=== PATIENT | female | born 2005 | race Caucasian/White ===

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

== ENCOUNTER 2024-10-28 17:43 | Emergency (ER) | payer BC, SELFPAY ==
--- OUTSIDE RECORDS SUMMARY | 2024-10-28 17:54 | XMS_ITS | Patient Health Summary ---
Author Organization [facility] Address [address] [place] [address] Care Team Providers Care Sas Statistical Programmer Name Role Phone Unavailable Primary Care Provider Unavailabl e Note from [facility],non-owned Affiliates and Associated Physician Practices is amultiple site organization consisting of ambulatory clinics and hospital sitesin [place], [place], [place] and [place]. This disclosure is being madepursuant to the Care Everywhere program and may not contain all information available regarding this patient. Last updated 18.[facility] Social History Tobacco Use Types Packs/Day Years Used Date Smoking Tobacco: Never Assessed Sex and Gender Information Value Date Recorded Sex Assigned at Not on file Gender Identity Not on file Sexual Orientation Not on file Procedures * CULTURE URINE(Performed 04/27/2014) Results * (ABNORMAL) CULTURE URINE (04/27/2014 11:00 AM CDT) Culture Urine ESCHERICHIA COLI(A) [facility] Comment:1,000,000 CFU/ML Esc herichia Coli Urine specimen (specimen) URINE / Unknown 04/27/2014 11:00 AM CDT 04/29/2014 3:46 PM CDT Narrative [facility] - 04/30/2014 1:07 PM CDT Specimen Type->Urine Organism Antibiotic Method Susceptibility Escherichia coli Amikacin SUSCEPTIBILITY <=2 mcg/ml: Sensitive Escherichia coli Ampicillin SUSCEPTIBILITY 4 mcg/ml: Sensitive Escherichia coli Ampicillin-sulbactam SUSCEPTIBILITY <=2 mcg/ml: Sensitive Escherichia coli Cefazolin SUSCEPTIBILITY <=4 mcg/ml: Sensitive Escherichia coli Cefepime SUSCEPTIBILITY <=1 mcg/ml: Sensitive Escherichia coli Ceftazidime SUSCEPTIBILITY <=1 mcg/ml: Sensitive Escherichia coli Ceftriaxone SUSCEPTIBILITY <=1 mcg/ml: Sensitive Escherichia coli Gentamicin SUSCEPTIBILITY <=1 mcg/ml: Sensitive Escherichia coli Imipenem SUSCEPTIBILITY <=0.25 mcg/ml: Sensitive Escherichia coli Levofloxacin SUSCEPTIBILITY <=0.12 mcg/ml: Sensitive Escherichia coli Nitrofurantoin SUSCEPTIBILITY 32 mcg/ml: Sensitive Escherichia coli Piperacillin-tazobactam SUSCEPTIBILIT Y <=4 mcg/ml: Sensitive Escherichia coli Tobramycin SUSCEPTIBILITY <=1 mcg/ml: Sensitive Escherichia coli Trimethoprim-sulfame thoxazo le SUSCEPTIBILITY <=20 mcg/ml: Sensitive Escherichia coli Extended-Spectrum Beta-Lactamase SUSCEPTIBILITY NEGATIVE: - Rajat Khan MD LAB - MICROBIOLOGY [facility] [place] [id number] [address] [phone]
--- OUTSIDE RECORDS SUMMARY | 2024-10-28 17:54 | XMS_ITS | Referral Summary ---
Author Organization [facility] Address [facility] [place] [address] Care Team Providers Care Proposition Player Name Role Phone Unavailable Primary Care Provider Unavailabl e Source Comments [facility],non-owned Affiliates and Associated Physician Practices is amultiple site organization consisting of ambulatory clinics and hospital sitesin [place], [place], [place] and [place]. This disclosure is being madepursuant to the Care Everywhere program and may not contain all information available regarding this patient. Last updated 18.[facility] [employer] Social History Tobacco Use Types Packs/Day Years Used Date Smoking Tobacco: Never Assessed Sex and Gender Information Value Date Recorded Sex Assigned at Not on file Gender Identity Not on file Sexual Orientation Not on file Plan of Treatment Not on file
--- OUTSIDE RECORDS SUMMARY | 2024-10-28 17:54 | XMS_ITS | Clinical Summary ---
Author Organization [facility] Address [facility] [place] [address] Care Team Providers Care Mechanism Inspector Name Role Phone Unavailable Primary Care Provider Unavailabl e Social History Tobacco Use Types Packs/Day Years Used Date Smoking Tobacco: Never Assessed Comments Unknown Sex and Gender Information Value Date Recorded Sex Assigned at Not on file Legal Sex Female 5:07 PM CDT Gender Identity Not on file Sexual Orientation Not on file Plan of Treatment Health Maintenance Due Date Last Done Comments Cervical Cancer Screening Pa p Smear (Age 21 to 29) Every 3 Years 2003 Cervical Cancer Screening 2003 Annual Physical 2006 HPV Vaccines (1 - 3-dose series) 2018 Meningococcal B Vaccine (1 o f 2 - Standard) 2019 Hepatitis C 2021 DTaP, Tdap and Td Vaccines ( 1 - Tdap) 2022 Hepatitis B Vaccines (1 of 3 - 19+ 3-dose series) 2022 COVID-19 Vaccine ( - 2023-2 5 season) 2024 Influenza Adult (#1) 2024 Meningococcal Vaccine Aged Out No biju chari eligible based on patient's age to complete this topic Pneumococcal Vaccine: Pediat rics (0 to 5 Years) and At-Risk Patients (6 to 64 Years) Aged Out No longer eligible b ased on patient's age to complete this topic RSV Immunizations Under 20 Months Aged Out No longer eligible based on patient's age to complete this topic
--- OUTSIDE RECORDS SUMMARY | 2024-10-28 17:54 | XMS_ITS | Clinical Summary ---
Author Organization [facility] [employer] Address [address] [place] [address] Care Team Providers Care Superintendent Electric Power Name Role Phone Unavailable Primary Care Provider Unavailabl e Source Comments [facility] [employer],non-owned Affiliates and Associated Physician Practices is amultiple site organization consisting of ambulatory clinics and hospital sitesin [place], [place], [place] and [place]. This disclosure is being madepursuant to the Care Everywhere program and may not contain all information available regarding this patient. Last updated 18.[facility] [employer] Social History Tobacco Use Types Packs/Day Years Used Date Smoking Tobacco: Never Assessed Sex and Gender Information Value Date Recorded Sex Assigned at Not on file Gender Identity Not on file Sexual Orientation Not on file Plan of Treatment Health Maintenance Due Date Last Done Comments PAP SMEAR 2003 HIV SCREENING 2018 HPV VACCINE (1 - 3-dose series) 2018 CHLAMYDIA/GONORRHEA SCREENING 2019 MENINGOCOCCAL (Group B) VACC INE (1 of 2 - Standard) 2019 HEPATITIS C SCREENING 04/10/2021 DTAP/TDAP/TD VACCINES (1 - Tdap) 2022 HEPATITIS B VACCINE (1 of 3 - 19+ 3-dose series) 2022 COVID-19 VACCINE (1 - 2023-2 5 season) 2024 INFLUENZA VACCINE (#1) 2024 DEPRESSION SCREENING 09/05/2024 ZOSTER VACCINE (1 of 2) 2053 HIB VACCINE Aged Out No longer eligi ble based on patient's age to complete this topic MENINGOCOCCAL VACCINE Aged Out No biju chari eligible based on patient's age to complete this topic PNEUMOCOCCAL VACCINE Aged Out No long er eligible based on patient's age to complete this topic
[2024-10-28 18:41] VITALS: BP 145/85; PULSE 100; RESP 18; TEMP 36.8; O2SAT 98
--- NOTE | 2024-10-28 19:18 | ED_ITS ---
HPI - Abdominal Pain General Chief Complaint: Abdominal Pain Stated Complaint: pain in rt abdomen Time Seen by Provider: 10/28/24 19:19 Source: patient and RN notes reviewed Mode of arrival: ambulatory Limitations: no limitations History of Present Illness HPI narrative: 19 y/o female presented for c/o right lower abdominal pain worsening for one week. Endorses nausea and dry heaving today, rates pain 8/10, worse when walking or bending over. Had to leave work due to pain. states she has PCOS and has had right lower abdominal pain for about one year. Denies vomiting, constipation or urinary complaints. Denies chance for . Taking Tylneol and ibuprofen. Last ate at 1600. LBM today. Related Data Home Medications ?Medication ?Instructions ?Recorded ?Confirmed ?Last Taken ?Type citalopram 20 mg tablet 20 mg HS 10/21/19 05/08/22 Unknown History drospirenone 3 mg-ethinyl 1 tablet DAILY 10/21/19 05/08/22 Unknown History estradiol 0.02 mg tablet trazodone 100 mg tablet 100 mg HS 10/21/19 05/08/22 Unknown History Allergies Allergy/AdvReac Type Severity Reaction Status Date / Time Penicillins Allergy Unknown Swelling Verified 10/28/24 18:58 Review of Systems Review of Systems: CONSTITUTIONAL: Denies body aches, fever, chills ENT: Denies rhinorrhea, congestion CARDIOVASCULAR: Denies chest pain, palpitations, or edema. RESPIRATORY: Denies cough or dyspnea. GASTROINTESTINAL: Endorses abdominal pain, nausea Denies vomiting, diarrhea, hematochezia, melena, hematemesis GENITOURINARY: Denies dysuria, hematuria, or CVA tenderness. SKIN: Denies rash MUSCULOSKELETAL: Denies back pain, joint pain, or myalgia. NEUROLOGIC: Denies headache, numbness, tingling, or weakness. All systems reviewed & are unremarkable except as noted in HPI and below PMFSH Past Medical History Medical History No significant past medical history Social History Social History Gender identity (if verbalized by the patient): Female Comments At time of signature, I have reviewed and agree with nursing past medical, surgical, social and family history unless otherwise noted. Please see nursing chart for further information. There is no relevant family history pertinent to the presenting complaint Exam Narrative: GENERAL: appears in pain, nontoxic in no acute distress. EYES: EOMI. Conjunctivae normal. ENT: Mucous membranes pink and moist. CHEST: No respiratory distress. Clear to auscultation. HEART: Regular rate and rhythm. No murmur appreciated. Normal peripheral pulses. ABDOMEN: abd soft, nondistended, Bowel sounds x4. Tender abdomen to RUQ and RLQ. No guarding, rebound tenderness, asymmetry, rigidity. No pulsatile masses. Body habitus limits full abdominal exam. No periumbilical tenderness. No Supra public tenderness or distension. No hernia noted. No scars or surface trauma. SKIN: Warm, dry, no rash. Capillary refill normal. Normal skin turgor. NEURO: No focal deficits. Alert and oriented x3. Course Course Emergency Course: Patient is aware of diagnosis, understands and agrees to treatment plan. Anticipatory guidance given. Patient agrees to follow-up as directed and is aware of reasons to seek care at the emergency department. Portions of this record may have been created with voice recognition software Level of Care: Express Care Visit Vital Signs Vital signs: Vital Signs Temperature 98.2 F 10/28/24 18:41 Pulse Rate 100 10/28/24 18:41 Respiratory Rate 18 10/28/24 18:41 Blood Pressure 145/85 H 10/28/24 18:41 Pulse Oximetry 98 10/28/24 18:41 Oxygen Delivery Room Air 10/28/24 18:41 Temperature 98.2 F 10/28/24 18:41 Pulse Rate 100 10/28/24 18:41 Respiratory Rate 18 10/28/24 18:41 Blood Pressure 145/85 H 10/28/24 18:41 Pulse Oximetry 98 10/28/24 18:41 Oxygen Delivery Room Air 10/28/24 18:41 Transfer Transfered to: [facility] Transportation: Other (Private vehicle) Transfer rationale: Pt is agreeable to transfer. Requests transfer to [facility] via private vehicle. Risks of transportation reviewed with pt including injury, worsening of condition and . v/u. Father will be driving pt; Report called to hospital, spoke with Dr Lugo, accepting physician. Pt is in stable con dition at time of transfer. Advised to remain NPO and go directly to the hospital. MDM - Abdominal Pain MDM Narrative Medical decision making narrative: Patient presenting with complaint of right lower abdominal pain for 1 week, with associated nausea and dry heaves. Advised ER transfer. Differential Diagnosis Differential diagnosis: Likely abdominal pain, acute appendicitis, calculus of kidney, constipation, diverticulitis, endometriosis, gastroenteritis, pancreatitis and small bowel obstruction Discharge Plan Discharge Clinical Impression: Abdominal pain Patient Disposition: Acute Care Hospital Condition: Stable Patient Language: Amharic Prescriptions: No Action citalopram 20 mg tablet 20 mg HS trazodone 100 mg tablet 100 mg HS drospirenone-ethinyl estradiol 3-0.02 mg tablet 1 tablet DAILY clindamycin HCl 300 mg capsule 300 mg PO BID 7 Days Qty: 14 0RF Follow-up/Referrals: PHYSICIAN,COMMUNITY THEATER ACTOR [Primary Care Provider] - Time of Disposition: 19:39
== END 2024-10-28 19:43 | disposition short-term general hospital (02) ==
PROVIDERS: Emergency Provider Nurse Practitioner Family
DX: R10.31 Right lower quadrant pain (principal)
CPT/HCPCS: 99212; G0463

== ENCOUNTER 2024-10-28 20:24 | Emergency (ER) | payer BC, SELFPAY ==
--- NOTE | ~2024-10-28 | US_ITS ---
EXAMINATION: US abdomen limited DATE: 10/29/2024 08:20 INDICATION: Right lower quadrant abdominal pain. TECHNIQUE: Multiple grayscale and Doppler ultrasound images of the abdomen were obtained. COMPARISON: CT dated 10/29/2024 FINDINGS: The pancreatic head and body are normal in appearance. The pancreatic tail is not visualized. Liver has normal contour, with a smooth surface. There is increased parenchymal echogenicity and coarsened echotexture consistent with diffuse hepatic steatosis with more hypoechoic focal fatty sparing along the gallbladder fossa. No liver lesion identified. No intrahepatic biliary duct dilation suspected. Portal venous flow was seen in the hepatopetal, normal direction and has normal Doppler waveform. The gallbladder is normal in appearance. There is no cholelithiasis. The common bile duct measures 4-5 mm, which is normal. Sonographic East sign was reported as negative by the treasury assistant.Visualized p ortion of the right kidney demonstrates normal contour and echogenicity with no hydronephrosis. IMPRESSION: 1. Diffuse hepatic steatosis. Reviewed, dictated and finalized at location B. E SHEAR OPERATOR
--- NOTE | ~2024-10-28 | CT_ITS ---
CT of the Abdomen and Pelvis: Indication: Abdominal pain Technique: 2.5 mm axial scans were obtained through the abdomen and pelvis following intravenous adm inistration of 100 cc of Omnipaque 350. Dose reduction technique was used on this scan by utilizing a utomated exposure control and iterative reconstruction technique. The dose-length product (DLP) was 1 713.82 mGy-cm. Findings: Scans through the lung bases are unremarkable. The liver, spleen, pancreas, gallbladder, adrenals and kidneys are within normal limits. No evidence of aortic aneurysm. No lymphadenopathy. No bowel obstruction or bowel wall thickening. There is no evidence to suggest acute appendicitis. Images through the pelvis were performed. Urinary bladder unremarkable. No pelvic mass seen. No ascit es. Impression: No significant abnormalities seen. Reviewed, dictated and finalized at [facility]. ESTATE FINANCIAL ANALYST Impression: No significant abnormalities seen.
--- OUTSIDE RECORDS SUMMARY | 2024-10-28 20:26 | XMS_ITS | Clinical Summary ---
Author Organization [facility] [employer] Address [address] [place] [address] Care Team Providers Care Ditcher Name Role Phone Unavailable Primary Care Provider Unavailabl e Source Comments [facility] [employer],non-owned Affiliates and Associated Physician Practices is amultiple site organization consisting of ambulatory clinics and hospital sitesin [place], [place], [place] and [place]. This disclosure is being madepursuant to the Care Everywhere program and may not contain all information available regarding this patient. Last updated 18.[facility] [employer] Social History Tobacco Use Types Packs/Day Years [...]
--- OUTSIDE RECORDS SUMMARY | 2024-10-28 20:26 | XMS_ITS | Referral Summary ---
Author Organization [facility] Address [facility] [place] [address] Care Team Providers Care Body Mechanic Name Role Phone Unavailable Primary Care Provider Unavailabl e Source Comments [facility],non-owned Affiliates and Associated Physician Practices is amultiple site organization consisting of ambulatory clinics and hospital sitesin [place], [place] and [place]. This disclosure is being madepursuant to the Care Everywhere program and may not contain all information available regarding this patient. Last updated 18.[facility] [employer] Social History Tobacco Use Types Packs/Day Years Used Date Smoking Tobacco: Never Assessed Sex and Gender Information Value Date Recorded Sex Assigned at Not on file Gender Identity Not on file Sexual Orientation Not on file Plan of Treatment Not on file
--- OUTSIDE RECORDS SUMMARY | 2024-10-28 20:26 | XMS_ITS | Clinical Summary ---
Author Organization [facility] Address [facility] [place] [address] Care Team Providers Care Machine Binding Folder Name Role Phone Unavailable Primary Care Provider [...]
--- OUTSIDE RECORDS SUMMARY | 2024-10-28 20:26 | XMS_ITS | Patient Health Summary ---
Author Organization [facility] Address [address] [place] [address] Care Team Providers Care Advertising Agency Manager Name Role Phone Unavailable Primary Care Provider Unavailabl e Note from [facility],non-owned Affiliates and Associated Physician Practices is amultiple site organization consisting of ambulatory clinics and hospital sitesin [place], [place], [place] and [place]. This disclosure is being madepursuant to the Care Everywhere program and may not contain all information available regarding this patient. Last updated 18.[facility] Social History Tobacco Use Types Packs/Day Years Used Date Smoking Tobacco: Never Assessed Sex and Gender Information Value Date Recorded Sex Assigned at Not on file Gender Identity Not on file Sexual Orientation Not on file Procedures * CULTURE URINE(Performed 04/27/2014) Results * (ABNORMAL) CULTURE URINE (04/27/2014 11:00 AM CDT) Culture Urine ESCHERICHIA COLI(A) [facility] Comment:1,000,000 CFU/ML Esc herichia Coli Urine specimen (specimen) URINE / Unknown 04/27/2014 11:00 AM CDT 04/29/2014 3:46 PM CDT Narrative [facility] - 04/30/2014 1:07 PM CDT Specimen [...] Khan MD LAB - MICROBIOLOGY O RDERABLES [place] [id number] [address] [phone]
[2024-10-28 20:45] VITALS: BP 154/109; PULSE 100; RESP 20; TEMP 36.6; O2SAT 100
[2024-10-29] VITALS (25 sets, daily range): BP systolic 115–172; BP diastolic 65–100; PULSE 69–107; RESP 16–18; TEMP 36.4–36.7; O2SAT 96–100
[2024-10-29 00:43] LABS: BEDSIDEPREGUCG Negative (Negative)
[2024-10-29 00:53] LABS: Add Urine Microscopic? YES; Appearance Urine Clear (Clear); Bacteria Urine Rare /hpf; Bilirubin Urine Negative (Negative); Blood Urine Negative (Negative); Color Urine Yellow (Yellow); Glucose Urine UA Negative (Negative); Ketones Urine Trace mg/dL (Negative); Leukocyte Esterase Ur Negative LEU/UL (Negative); Nitrate Urine Negative (Negative); Non Pathogenic Casts 0-2; Protein Urine Trace mg/dL (Negative); Specific Grav Ur 1.032 (1.001-1.035); Squamous Epithelial Cell Urine None Seen /hpf (Few); Urobilinogen Urine 0.2 mg/dL (<2.0); WBC Urine 0-5 /hpf (0-3); pH Urine 5.5 (5.0-9.0)
--- OUTSIDE RECORDS SUMMARY | 2024-10-29 04:20 | XMS_ITS | Clinical Summary ---
Author Organization [facility] Address [facility] [place] [address] Care Team Providers Care Cargo Bracer Name Role Phone Unavailable Primary Care Provider [...]
--- OUTSIDE RECORDS SUMMARY | 2024-10-29 04:20 | XMS_ITS | Clinical Summary ---
Author Organization [facility] Address [address] [place] [address] Care Team Providers Care Carpenter Helper Maintenance Name Role Phone Unavailable Primary Care Provider Unavailabl e Source Comments [facility] [employer],non-owned Affiliates and Associated Physician Practices is amultiple site organization consisting of ambulatory clinics and hospital sitesin [place], [place], [place] and [place]. This disclosure is being madepursuant to the Care Everywhere program and may not contain all information available regarding this patient. Last updated 18.[facility] [employer] Social History Tobacco Use Types Packs/Day Years [...]
--- OUTSIDE RECORDS SUMMARY | 2024-10-29 04:20 | XMS_ITS | Referral Summary ---
Author Organization [facility] Address [address] [place] [address] Care Team Providers Care Goldsmith Apprentice Name Role Phone Unavailable Primary Care Provider Unavailabl e Source Comments [facility],non-owned Affiliates and Associated Physician Practices is amultiple site organization consisting of ambulatory clinics and hospital sitesin [place], [place], [place] and [place]. This disclosure is being madepursuant to the Care Everywhere program and may not contain all information available regarding this patient. Last updated 18.[facility] [employer] Social History Tobacco Use Types Packs/Day Years Used Date Smoking Tobacco: Never Assessed Sex and Gender Information Value Date Recorded Sex Assigned at Not on file Gender Identity Not on file Sexual Orientation Not on file Plan of Treatment Not on file
--- OUTSIDE RECORDS SUMMARY | 2024-10-29 04:20 | XMS_ITS | Patient Health Summary ---
Author Organization [facility] Address [address] [place] [address] Care Team Providers Care Sales Review Clerk Name Role Phone Unavailable Primary Care Provider Unavailabl e Note from [facility],non-owned Affiliates and Associated Physician Practices is amultiple site organization consisting of ambulatory clinics and hospital sitesin [place], [place] and [place]. This disclosure is being madepursuant to the Care Everywhere program and may not contain all information available regarding this patient. Last updated 18.[facility] Social History Tobacco Use Types Packs/Day Years Used Date Smoking Tobacco: Never Assessed Sex and Gender Information Value Date Recorded Sex Assigned at Not on file Gender Identity Not on file Sexual Orientation Not on file Procedures * CULTURE URINE(Performed 04/27/2014) Results * (ABNORMAL) CULTURE URINE (04/27/2014 11:00 AM CDT) Culture Urine ESCHERICHIA COLI(A) [facility] Comment:1,000,000 CFU/ML Esc herichia Coli Urine specimen (specimen) URINE / Unknown 04/27/2014 11:00 AM CDT 04/29/2014 3:46 PM CDT Narrative [facility] - 04/30/2014 1:07 PM CDT Specimen [...] Khan MD LAB - MICROBIOLOGY O RDERABLES [place] [id number] [address] [phone]
--- NOTE | 2024-10-29 04:27 | ED.ABDPAIN ---
HPI - Abdominal Pain General Chief Complaint: Abdominal Pain <Roland Ferrara MD - Last Filed: 10/30/24 07:09> Stated Complaint: Abd pain RLQ x1 year <Roland Ferrara MD - Last Filed: 10/30/24 07:09> Time Seen by Provider: 10/29/24 04:08 <Roland Ferrara MD - Last Filed: 10/30/24 07:09> History of Present Illness HPI narrative: 19-year-old female with a history of PCOS on oral control presenting to the emergency room with acute on chronic right lower quadrant pain. Patient has had pain in that right side for over a year but today got worse. Denies any vomiting but states she has been dry heaving with nauseousness. No diarrhea constipation, fever, chills. Went to urgent care who referred her to the ER for evaluation with imaging for rule out appendicitis. Patient still has all of her organs has not had any abdominal surgeries. No vaginal bleeding or discharge. No urinary complaints. <Roland Ferrara MD - Last Filed: 10/30/24 07:09> Related Data Home Medications: Home Medications ?Medication ?Instructions ?Recorded ?Confirmed ?Last Taken ?Type drospirenone 3 mg-ethinyl 1 tablet DAILY 10/21/19 05/08/22 10/28/24 History estradiol 0.02 mg tablet metformin 500 mg tablet 500 mg PO QID 10/29/24 10/29/24 10/28/24 History spironolactone 50 mg tablet 50 mg PO BID 10/29/24 10/29/24 10/28/24 History <Roland Ferrara MD - Last Filed: 10/30/24 07:09> Allergies/Adverse Reactions: Allergies Allergy/AdvReac Type Severity Reaction Status Date / Time Penicillins Allergy Unknown Swelling Verified 10/29/24 03:44 <Roland Ferrara MD - Last Filed: 10/30/24 07:09> Review of Systems Review of Systems: As reviewed above in HPI <Roland Ferrara MD - Last Filed: 10/30/24 07:09> [facility] Past Medical History Medical History: Medical History No significant past medical history <Roland Ferrara MD - Last Filed: 10/30/24 07:09> Social History Social History: Social History Gender identity (if verbalized by the patient): Female <Roland Ferrara MD - Last Filed: 10/30/24 07:09> Exam Narrative: GENERAL: [Well-appearing, well-nourished, and in no acute distress.] HEAD: [Normocephalic, atraumatic.] EYES: [PERRLA and EOMI.] ENT: Nares clear, no rhinorrhea or epistaxis. Mucous membranes moist. NECK: Supple. CHEST: [Clear to auscultation. No respiratory distress.] HEART: [Regular rate and rhythm]. No murmur heard. [Normal peripheral pulses.] ABDOMEN: [Soft, nondistended], mildly tender in the right lower and upper quadrant but no signs of peritonitis. No rebound guarding. EXTREMITIES: Normal range of motion. [No edema.] SKIN: Warm, dry, no rash. NEURO: [No focal deficits]. Alert and oriented [x3.] PSYCH: [Normal mood and affect.] <Roland Ferrara MD - Last Filed: 10/30/24 07:09> Course Reevaluation(s) Reevaluation #1: At time of sign-out ultrasound was pending. Ultrasound showed diffuse hepatic steatosis. No evidence acute cholecystitis. Patient was updated on the results of his workup was encouraged to have close follow-up with primary care physician and with surgery as outpatient <Tre Dupree MD - Last Filed: 10/29/24 17:49> Vital Signs Vital signs: Vital Signs Temperature 36.6 C 10/28/24 20:45 Pulse Rate 100 10/28/24 20:45 Respiratory Rate 20 10/28/24 20:45 Blood Pressure 154/109 H 10/28/24 20:45 Pulse Oximetry 100 10/28/24 20:45 Temperature 36.7 C 10/29/24 06:00 Pulse Rate 70 10/29/24 08:51 Respiratory Rate 17 10/29/24 08:51 Blood Pressure 115/65 10/29/24 08:51 Pulse Oximetry 100 10/29/24 08:51 <Roland Ferrara MD - Last Filed: 10/30/24 07:09> Vital Signs Temperature 36.6 C 10/28/24 20:45 Pulse Rate 100 10/28/24 20:45 Respiratory Rate 20 10/28/24 20:45 Blood Pressure 154/109 H 10/28/24 20:45 Pulse Oximetry 100 10/28/24 20:45 Temperature 36.7 C 10/29/24 06:00 Pulse Rate 70 10/29/24 08:51 Respiratory Rate 17 10/29/24 08:51 Blood Pressure 115/65 10/29/24 08:51 Pulse Oximetry 100 10/29/24 08:51 <Tre Dupree MD - Last Filed: 10/29/24 17:49> MDM - Abdominal Pain MDM Narrative Medical decision making narrative: 19-year-old female with history of PCOS presented to the emergency department for evaluation of abdominal pain that is worsening over last day. She states she has had chronic abdominal pain in the right lower quadrant for about a year and has been attributing this to PCOS. Today she started having pain in the right lower and right upper quadrant associated some nausea. Strong family history of gallbladder disease. They went to urgent care and referred to the emergency department for evaluation with CT imaging. Patient is otherwise well-appearing not any acute distress but is complaining of pain does have a tender abdomen. Mildly hypertensive but no tachycardia, fever or hypoxia. Suspicion presently is for potential appendicitis, cholecystitis, gastroenteritis, symptomatic gallstones. Workup was ordered including CBC, CMP, lipase, urinalysis test, CT scan of the abdomen pelvis with contrast was obtained. Workup shows a minor white count of 10.7, normal platelet count, normal hemoglobin. Electrolytes within normal limits, normal renal function panel, normal glucose, normal hepatic function panel. Urinalysis without any signs of infection. Negative test. CT of the abdomen pelvis shows no acute findings. Patient was re-evaluated had some minor improvement in pain. She was given Toradol initially and now requiring morphine. Right upper quadrant ultrasound was ordered for further delineation she is still having some tenderness. Patient will be signed out to Dr. Dupree pending ultrasound of the right upper quadrant and likely DC home. <Roland Ferrara MD - Last Filed: 10/30/24 07:09> Medical Records Attestation: I reviewed the patient's medical records. <Roland Ferrara MD - Last Filed: 10/30/24 07:09> Lab Data Attestation: I reviewed the patient's lab results. <Roland Ferrara MD - Last Filed: 10/30/24 07:09> Result diagrams: 10/29/24 04:27 10/29/24 04:27 <Roland Ferrara MD - Last Filed: 10/30/24 07:09> Labs: Lab Results 10/29/24 10/29/24 10/29/24 Range/Units 00:38 00:42 04:27 WBC 10.7 H (4.5-10.0) K/mm3 RBC 5.19 (4.2-5.4) M/mm3 Hgb 15.1 H (12.0-15.0) g/dL Hct 45.1 (37.0-47.0) % MCV 86.9 (80-100) fl MCH 29.1 (26-34) pg MCHC 33.5 (32-36) g/dl RDW 12.4 (11.5-14.5) % Plt Count 350 (150-375) k/mm3 MPV 9.0 (7.4-10.4) fl Immature Gran % (Auto) 0.2 (0-0.5) % Neut % (Auto) 51.1 (45.5-73.1) % Lymph % (Auto) 42.7 (18.3-44.2) % [place] % (Auto) 5.3 (2.6-8.5) % Eos % (Auto) 0.1 (0-4.4) % Baso % (Auto) 0.6 (0.2-1.2) % Lymph # (Auto) 4.57 H (0.9-3.2) K/mm3 Rolette # (Auto) 0.6 (0.1-0.6) K/mm3 Eos # (Auto) 0.0 (0-0.3) K/mm3 Baso # (Auto) 0.1 (0.0-0.1) K/mm3 Abs Immat Gran (auto) 0.02 (0.00-0.031) K/mm3 Absolute Neuts (auto) 5.5 (1.3-6.7) K/mm3 Absolute Nucleated RBC 0.000 (0.0-0.012) K/mm3 Nucleated RBC % 0.0 (0.0-0.2) % Sodium 138 (137-145) mmol/L Potassium 4.3 (3.4-5.0) mmol/L Chloride 102 (98-107) mmol/L Carbon Dioxide 23 (22-30) mmol/L Anion Gap 13 H (4-12) mmol/L BUN 11 (7-17) mg/dL Creatinine 0.74 (0.7-1.0) mg/dL Estim Creat Clear Calc 126 ml/min Estimated GFR > 60 (59 - ) Glucose 85 (65-110) mg/dL Calcium 9.6 (8.4-10.2) mg/dL Total Bilirubin 0.5 (0.2-1.3) mg/dL AST 20 (14-36) U/L ALT 17 (6-35) U/L Alkaline Phosphatase 49 (38-126) U/L Total Protein 8.0 (6.3-8.2) g/dL Albumin 4.4 (3.5-5.1) g/dL Urine Color Yellow (Yellow) Urine Appearance Clear (Clear) Urine pH 5.5 (5.0-9.0) Ur Specific [place] 1.032 (1.001-1.035) Urine Protein Trace (Negative) mg/dL Urine Glucose (UA) Negative (Negative) mg/dL Urine Ketones Trace H (Negative) mg/dL Ur Blood (Man) Negative (Negative) Urine Nitrate Negative (Negative) Urine Bilirubin Negative (Negative) Urine Urobilinogen 0.2 (<2.0) mg/dL Leukocyte Esterase Rfl Negative (Negative) NELI/UL Urine RBC 3-5 H (0-2) /hpf Urine WBC 0-5 (0-3) /hpf Ur Squamous Epith Cells None seen (Few) /hpf Urine Bacteria Rare /hpf Urine Casts 0-2 POC Urine HCG, Qual Negative (Negative) <Roland Ferrara MD - Last Filed: 10/30/24 07:09> Lab Results 10/29/24 10/29/24 10/29/24 Range/Units 00:38 00:42 04:27 WBC 10.7 H (4.5-10.0) K/mm3 RBC 5.19 (4.2-5.4) M/mm3 Hgb 15.1 H (12.0-15.0) g/dL Hct 45.1 (37.0-47.0) % MCV 86.9 (80-100) fl MCH 29.1 (26-34) pg MCHC 33.5 (32-36) g/dl RDW 12.4 (11.5-14.5) % Plt Count 350 (150-375) k/mm3 MPV 9.0 (7.4-10.4) fl Immature Gran % (Auto) 0.2 (0-0.5) % Neut % (Auto) 51.1 (45.5-73.1) % Lymph % (Auto) 42.7 (18.3-44.2) % Rolette % (Auto) 5.3 (2.6-8.5) % Eos % (Auto) 0.1 (0-4.4) % Baso % (Auto) 0.6 (0.2-1.2) % Lymph # (Auto) 4.57 H (0.9-3.2) K/mm3 [place] # (Auto) 0.6 (0.1-0.6) K/mm3 Eos # (Auto) 0.0 (0-0.3) K/mm3 Baso # (Auto) 0.1 (0.0-0.1) K/mm3 Abs Immat Gran (auto) 0.02 (0.00-0.031) K/mm3 Absolute Neuts (auto) 5.5 (1.3-6.7) K/mm3 Absolute Nucleated RBC 0.000 (0.0-0.012) K/mm3 Nucleated RBC % 0.0 (0.0-0.2) % Sodium 138 (137-145) mmol/L Potassium 4.3 (3.4-5.0) mmol/L Chloride 102 (98-107) mmol/L Carbon Dioxide 23 (22-30) mmol/L Anion Gap 13 H (4-12) mmol/L BUN 11 (7-17) mg/dL Creatinine 0.74 (0.7-1.0) mg/dL Estim Creat Clear Calc 126 ml/min Estimated GFR > 60 (59 - ) Glucose 85 (65-110) mg/dL Calcium 9.6 (8.4-10.2) mg/dL Total Bilirubin 0.5 (0.2-1.3) mg/dL AST 20 (14-36) U/L ALT 17 (6-35) U/L Alkaline Phosphatase 49 (38-126) U/L Total Protein 8.0 (6.3-8.2) g/dL Albumin 4.4 (3.5-5.1) g/dL Urine Color Yellow (Yellow) Urine Appearance Clear (Clear) Urine pH 5.5 (5.0-9.0) Ur Specific [place] 1.032 (1.001-1.035) Urine Protein Trace (Negative) mg/dL Urine Glucose (UA) Negative (Negative) mg/dL Urine Ketones Trace H (Negative) mg/dL Ur Blood (Man) Negative (Negative) Urine Nitrate Negative (Negative) Urine Bilirubin Negative (Negative) Urine Urobilinogen 0.2 (<2.0) mg/dL Leukocyte Esterase Rfl Negative (Negative) NELI/UL Urine RBC 3-5 H (0-2) /hpf Urine WBC 0-5 (0-3) /hpf Ur Squamous Epith Cells None seen (Few) /hpf Urine Bacteria Rare /hpf Urine Casts 0-2 POC Urine HCG, Qual Negative (Negative) <Tre Dupree MD - Last Filed: 10/29/24 17:49> Imaging Data Attestation: I personally reviewed and interpreted this imaging study as follows: <Roland Ferrara MD - Last Filed: 10/30/24 07:09> Radiologist's impression: ITS Impressions Abdomen/Pelvis CT 10/29/24 06:45 Impression: No significant abnormalities seen. Abdomen Ultrasound 10/29/24 08:29 IMPRESSION: 1. Diffuse hepatic steatosis. ADDENDUM: 10/29/24 0836 ADDENDUM: The visualized proximal inferior vena cava is normal. <Roland Ferrara MD - Last Filed: 10/30/24 07:09> ITS Impressions Abdomen/Pelvis CT 10/29/24 06:45 Impression: No significant abnormalities seen. Abdomen Ultrasound 10/29/24 08:29 IMPRESSION: 1. Diffuse hepatic steatosis. ADDENDUM: 10/29/24 0836 ADDENDUM: The visualized proximal inferior vena cava is normal. <Tre Dupree MD - Last Filed: 10/29/24 17:49> Discharge Plan Discharge Clinical Impression: Abdominal pain, History of PCOS <Roland Ferrara MD - Last Filed: 10/30/24 07:09> Patient Disposition: Home, Self-Care <Roland Ferrara MD - Last Filed: 10/30/24 07:09> Condition: Stable <Roland Ferrara MD - Last Filed: 10/30/24 07:09> Instructions: Antibiotic Form, Abdominal Pain (ED) <Roland Ferrara MD - Last Filed: 10/30/24 07:09> Additional Instructions: Follow-up with your regular doctor, return with any new or worsening concerns at any time. <Roland Ferrara MD - Last Filed: 10/30/24 07:09> Patient Language: Spanish <Roland Ferrara MD - Last Filed: 10/30/24 07:09> Prescriptions: No Action drospirenone-ethinyl estradiol 3-0.02 mg tablet 1 tablet DAILY spironolactone 50 mg tablet 50 mg PO BID metformin 500 mg tablet 500 mg PO QID <Roland Ferrara MD - Last Filed: 10/30/24 07:09> Follow-up/Referrals: PHYSICIAN,HUMAN RELATIONS PROFESSOR [Primary Care Provider] - <Roland Ferrara MD - Last Filed: 10/30/24 07:09>
[2024-10-29 04:34] LABS: Basophils Absolute Auto 0.1 K/mm3 (0.0-0.1); Basophils Percent Auto 0.6 % (0.2-1.2); Eosinophils Percent Auto 0.1 % (0-4.4); Hematocrit 45.1 % (37.0-47.0); Hemoglobin 15.1 g/dL (12.0-15.0); Immature Granulocyte Absolute 0.02 K/mm3 (0.00-0.031); Immature Granulocyte Percent A 0.2 % (0-0.5); Lymphocytes Absolute Auto 4.57 K/mm3 (0.9-3.2); Lymphocytes Percent Auto 42.7 % (18.3-44.2); Mean Corpuscular HGB Conc 33.5 g/dl (32-36); Mean Corpuscular Hemoglobin 29.1 pg (26-34); Mean Corpuscular Volume 86.9 fl (80-100); Monocytes Absolute Auto 0.6 K/mm3 (0.1-0.6); Monocytes Percent Auto 5.3 % (2.6-8.5); Neutrophils Absolute Auto 5.5 K/mm3 (1.3-6.7); Neutrophils Percent Auto 51.1 % (45.5-73.1); Platelet Count Result 350 k/mm3 (150-375); Red Blood Count 5.19 M/mm3 (4.2-5.4); Red Cell Distribution Width 12.4 % (11.5-14.5); White Blood Count 10.7 K/mm3 (4.5-10.0)
[2024-10-29 04:45] LABS: Alanine Aminotransferase 17 U/L (6-35); Albumin Level 4.4 g/dL (3.5-5.1); Alkaline Phosphatase 49 U/L (38-126); Anion Gap 13 mmol/L (4-12); Aspartate Amino Transferase 20 U/L (14-36); Bilirubin,Total 0.5 mg/dL (0.2-1.3); Blood Urea Nitrogen 11 mg/dL (7-17); Calcium 9.6 mg/dL (8.4-10.2); Carbon Dioxide 23 mmol/L (22-30); Chloride 102 mmol/L (98-107); Estimated CRCL calculation 126 ml/min; Estimated Glomerular Filt Rate > 60; Glucose 85 mg/dL (65-110); Potassium 4.3 mmol/L (3.4-5.0); Sodium 138 mmol/L (137-145)
[2024-10-29] MEDS: KETOROLAC 15 MG/ML VIAL (*BKC) IV PUSH ×2 (05:18→08:01)
[2024-10-29] MEDS: MORPHINE SULFATE (*CRX) 4 MG/ML INJ IV PUSH (06:27)
== END 2024-10-29 08:53 | disposition home or self-care (01) ==
PROVIDERS: Emergency Provider Student in an Organized Health Care Education/Training Program
DX: R10.31 Right lower quadrant pain (principal)
CPT/HCPCS: 36415; 74177; 76705; 80053; 81001; 81025; 85025; 96374; 96375; 96376; 99284; J1885; J2270; Q9967